=== PATIENT | male | born 1960 | race Caucasian/White ===

== ENCOUNTER 2020-02-19 09:18 | Outpatient (CLI) | payer BC, SELFPAY ==
--- NOTE | ~2020-02-19 | US_ITS ---
EXAMINATION: US carotid duplex BI DATE: 02/19/2020 09:40 INDICATION: Left carotid bruit TECHNIQUE: Grayscale, color Doppler, and pulsed Doppler images of the cervical carotid arteries were obtained. The degree of vessel stenosis is placed in one of the following categories: normal, <50%, 5 0-69%, >=70% but less than near-occlusion, near-occlusion, or total occlusion. Note that percent sten osis relative to normal distal artery lumen diameter is indirectly measured from velocity measurement s as described by Trace, et al. Radiology 2003; [id number]:[id number]. COMPARISON: None. FINDINGS: RIGHT: The right common carotid artery (CCA) peak systolic velocity (PSV) is 110 cm/s. The right internal ca rotid artery (ICA) PSV is 96 cm/s. The right ICA end-diastolic velocity (EDV) is 23 cm/s. The right I CA/CCA PSV ratio is 0.9. Grayscale and color Doppler images yield an estimate of <50% diameter reduct ion from plaque in the ICA. The external carotid artery (ECA) PSV is 175 cm/s. There is antegrade leeroy w in the right vertebral artery. LEFT: The left CCA PSV is 116 cm/s. The left ICA PSV is 92 cm/s. The left ICA EDV is 14 cm/s. The left ICA/ CCA PSV ratio is 0.8. Grayscale and color Doppler images yield an estimate of <50% diameter reduction from plaque in the ICA. The ECA PSV is 113 cm/s. There is antegrade flow in the left vertebral arter y. IMPRESSION: 1. <50% stenosis in the right internal carotid artery. 2. <50% stenosis in the left internal carotid artery. Reviewed, dictated and finalized at location B. CHANGER
== END 2020-02-19 09:19 | disposition home or self-care (01) ==
LOC: CHSIMG 09:19
PROVIDERS: PCP Internal Medicine; Visit Provider Internal Medicine
DX: R09.89 Other specified symptoms and signs involving the circulatory and respiratory systems (principal)
CPT/HCPCS: 93880

== ENCOUNTER 2024-05-24 07:36 | Outpatient (CLI) | payer BC, SELFPAY ==
--- NOTE | ~2024-05-24 | US_ITS ---
EXAMINATION: US carotid duplex BI DATE: 05/24/2024 08:11 INDICATION: Carotid stenosis TECHNIQUE: Grayscale, color Doppler, and pulsed Doppler images of the cervical carotid arteries were obtained. The degree of vessel stenosis is placed in one of the following categories: normal, <50%, 5 0-69%, >=70% but less than near-occlusion, near-occlusion, or total occlusion. Note that percent sten osis relative to normal distal artery lumen diameter is indirectly measured from velocity measurement s as described by Trace, et al. Radiology 2003; [id number]. COMPARISON: 02/19/2020 FINDINGS: RIGHT: The right common carotid artery (CCA) peak systolic velocity (PSV) is 103 cm/s. The right internal ca rotid artery (ICA) PSV is 75 cm/s. The right ICA end-diastolic velocity (EDV) is 23 cm/s. The right I CA/CCA PSV ratio is 0.7. Grayscale and color Doppler images yield an estimate of <50% diameter reduct ion from plaque in the ICA. The external carotid artery (ECA) PSV is 100 cm/s. There is antegrade leeroy w in the right vertebral artery. LEFT: The left CCA PSV is 103 cm/s. The left ICA PSV is 90 cm/s. The left ICA EDV is 24 cm/s. The left ICA/ CCA PSV ratio is 0.9. Grayscale and color Doppler images yield an estimate of <50% diameter reduction from plaque in the ICA. The ECA PSV is 90 cm/s. There is antegrade flow in the left vertebral artery . IMPRESSION: 1. <50% stenosis in the right internal carotid artery. 2. <50% stenosis in the left internal carotid artery. Reviewed, dictated and finalized at location A.
--- NOTE | ~2024-05-24 | CT_ITS ---
CT Scan of the Chest without Contrast: Clinical Indication: Lung cancer screening, nicotine dependence Technique: Contiguous sections were acquired throughout the chest without intravenous contrast. Dose reduction technique was used on this scan by utilizing automated exposure control and iterative recon struction technique. The dose-length product (DLP) was 159.81 mGy-cm. Findings: There is no evidence of any significant mediastinal, hilar or axillary lymphadenopathy. Coronary marnie ry calcifications are present. There is no evidence of pleural or pericardial effusion. Loosely grouped pulmonary nodules are present in the lateral right upper lobe, largest nodule measuri ng 6 mm, appearance suggestive of focal infectious process or small impacted airways. Images through the upper abdomen reveal no abnormalities. Impression: Lung RADS 3: Probably benign. Six-month follow-up CT recommended. Reviewed, dictated and finalized at [facility]. Impression: Lung RADS 3: Probably benign. Six-month follow-up CT recommended.
--- NOTE | ~2024-05-24 | US_ITS ---
EXAMINATION: US aorta DATE: 05/24/2024 08:14 INDICATION: Abdominal aortic aneurysm screening with risk factors of hypertension, obesity, hyperchol esterolemia and prior smoking. TECHNIQUE: Grayscale, color Doppler, and pulsed Doppler images of the aorta and common iliac arteries were obtained. COMPARISON: None. FINDINGS: The proximal aorta measures 2.3 cm. The mid aorta measures 2.0 cm. The distal aorta measures 1.7 cm. The right common iliac artery measures 1.4 cm. The left common iliac artery measures 1.2 cm. IMPRESSION: 1. Normal caliber abdominal aorta Reviewed, dictated and finalized at location A.
== END 2024-05-24 07:37 | disposition home or self-care (01) ==
LOC: CHSIMG 07:41
PROVIDERS: PCP Internal Medicine; Visit Provider Internal Medicine
DX: Z13.6 Encounter for screening for cardiovascular disorders (principal); Z12.2 Encounter for screening for malignant neoplasm of respiratory organs; Z87.891 Personal history of nicotine dependence; I65.23 Occlusion and stenosis of bilateral carotid arteries
CPT/HCPCS: 71271; 76775; 93880

== ENCOUNTER 2024-07-10 01:20 | Day surgery (SDC) | payer BC, SELFPAY ==
[2024-07-03 08:19] VITALS: BMI 27.1
[2024-07-10 07:05] VITALS: BP 135/69; PULSE 55; RESP 20; TEMP 36.1; O2SAT 97; BMI 26.6
[2024-07-10] MEDS: LACTATED RINGERS 1,000 ML 150 ML IV CONT (07:20)
--- NOTE | 2024-07-10 07:47 | PM.IMHP ---
H&P: HPI History of Present Illness Date/Time: 07/10/24 07:47 Chief Complaint: screening for colorectal cancer Narrative: this is a 64-year-old man who presents for colonoscopy. His last colonoscopy was 8-10 years ago. He denies any hematochezia or melena. He denies family history of colon cancer. Review of Systems Review of Systems: All systems reviewed & are unremarkable except as noted in HPI and below Constitutional: Constitutional: Denies chills, Denies fever(s), Denies headache(s) and Denies weight loss Eyes: Eyes: Denies change in vision ENT: Denies dizziness, Denies headache(s), Denies neck mass and Denies throat swelling Cardiovascular: Cardiovascular: Denies chest pain, Denies lightheadedness and Denies dyspnea Respiratory: Respiratory: Denies cough, Denies dyspnea and Denies wheezing Gastrointestinal: Gastrointestinal: Denies abdominal pain, Denies change in bowel habits, Denies nausea and Denies vomiting Genitourinary: Genitourinary: Denies hematuria and Denies dysuria Musculoskeletal: Musculoskeletal: Reports as per HPI Integumentary/Breasts: Skin/Breast: Reports as per HPI Neurologic: Denies dizziness and Denies headache(s) Allergic/Immunologic: Allergic/Immunologic: Denies throat swelling and Denies wheezing [facility] Past Medical History Medical History (Reviewed 10/29/22 @ 13:09 by Megan Menchaca [facility]) Coronary artery disease Hyperlipidemia Family History Family History Father Mesothelioma Mother Lung cancer Sibling Emphysema/COPD Mother Family history of lung cancer Sibling Family history of emphysema Social History Social History (Updated 10/25/23 @ 13:00 by Marina Plaza [facility]) Smoking packs per day: 1 Smoking cigarettes per day: 20.0 Years smoked: 45 Smoking pack-years: 45.00 Smoking status: Current every day smoker Smoking end date: 08/06/16 Alcohol intake: current Drinks per week: 10 Alcohol use details: Beer Substance use: never Substance use type: does not use Other substance usage details: Gummy periodically Do You Feel Safe in your Home?: Yes Lack of Transportation: No Lack of Food: Never True Current Housing: I Have Housing Concerned About Future Housing: No Difficulty Paying Gas/Electric Bills: No Difficulty Paying for Meds: No Currently Unemployed: YES Education: High School Diploma/GED Difficulty w/ Childcare or Family Care: No Living arrangements: with family Spiritual care concerns: No Meds Home Medications and Allergies Home Medications ?Medication ?Instructions ?Recorded ?Confirmed ?Type aspirin 81 mg tablet,delayed 81 mg PO DAILY 03/31/19 07/10/24 History release (Adult Low Dose Aspirin) lisinopril 20 1 tablet PO DAILY 03/31/19 07/10/24 History mg-hydrochlorothiazide 12.5 mg tablet nitroglycerin 0.4 mg sublingual 0.4 mg sublingual Q5M PRN chest 03/31/19 07/03/24 History tablet (Nitrostat) pain omega-3 fatty acids 1,000 mg 2,000 mg PO DAILY 03/31/19 07/10/24 History capsule (Fish Oil Concentrate) rosuvastatin 40 mg tablet (Crestor) 40 mg PO DAILY 03/31/19 07/10/24 History carvedilol 6.25 mg tablet 25 mg PO BID 07/03/24 07/10/24 History escitalopram oxalate 10 mg tablet 10 mg PO DAILY 07/03/24 07/10/24 History Allergies Allergy/AdvReac Type Severity Reaction Status Date / Time No Known Allergies Allergy Verified 07/10/24 07:03 Vital Signs Vital Signs - 24 hr 07/10/24 07:05 Temperature 97 F L Pulse Rate 55 L Respiratory Rate 20 Blood Pressure 135/69 Pulse Oximetry 97 Oxygen Delivery Room Air Exam Const: General: no acute distress and alert Orientation/consciousness: patient oriented x3 HENMT: Head: normocephalic and atraumatic Ears: hearing grossly normal bilaterally Face/Nose/Sinus: Normal nares present Mouth: Yes Normal oral and palatal mucosa present Eyes: Periorbital: periorbital findings normal Sclera: sclerae normal EOM: EOMs intact bilaterally Neck: Neck: normal visual inspection, no lymphadenopathy and trachea midline Chest: Chest palpation & inspection: normal inspection of the chest Resp: Effort & Inspection: normal respiratory effort Auscultation: clear to auscultation bilaterally Cardio: Jugular venous distension: no JVD Rate: regular rate Rhythm: regular rhythm Heart sounds: S1 normal heart sound present and S2 normal heart sound present Peripheral pulses: Peripheral pulses 2+ throughout GI: Inspection: normal to inspection GI Palp: Yes Soft to palpation, No Tenderness to palpation present (GI), No Guarding due to palpation present (GI) and No Rebound tenderness present Percussion: Yes normal to percussion Auscultation: normal bowel sounds : General: Yes no CVA tenderness Back/Spine/Pelvis: Back: no CVA tenderness Neuro: General: patient oriented x3, no focal motor deficits and CN's II-XI intact bilaterally Cognition (Neuro): normal cognition Speech: normal speech Motor exam (neuro): 5/5 motor strength present throughout Extrem: General: capillary refill normal and no clubbing, cyanosis or edema Assessment and Plan Assessment and plan (1) Screening for colorectal cancer: Code(s): Z12.11 - Encounter for screening for malignant neoplasm of colon; Z12.12 - Encounter for screening for malignant neoplasm of rectum Status: Acute Assessment and Plan: I have recommended colonoscopy. I have discussed the procedure, risks, benefits, and alternatives. Questions were answered. Patient is agreeable to proceed.
--- NOTE | 2024-07-10 07:53 | P.PNAN_ITS ---
Anes - Initial Pre Proc Eval Procedure: Operation Date: 07/10/24 08:00 Proposed Procedures p Screening Colonoscopy - Gerber Snell DO Date/Time: 07/10/24 07:53 Surgeon: Gerber Snell DO Pre Op Diagnosis: Screening for malignant neoplasm of colon Patient Data Age: 64 Gender: M Height: 1.83 m Weight: 89.3 kg Last Vital Signs Temp 97 F L 07/10/24 07:05 Pulse 55 L 07/10/24 07:05 Resp 20 07/10/24 07:05 BP 135/69 07/10/24 07:05 Pulse Ox 97 07/10/24 07:05 O2 Del Method Room Air 07/10/24 07:05 Allergies Allergy/AdvReac Type Severity Reaction Status Date / Time No Known Allergies Allergy Verified 07/10/24 07:03 Home Medications ?Medication ?Instructions ?Recorded ?Confirmed ?Type aspirin 81 mg tablet,delayed 81 mg PO DAILY 03/31/19 07/10/24 History release (Adult Low Dose Aspirin) lisinopril 20 1 tablet PO DAILY 03/31/19 07/10/24 History mg-hydrochlorothiazide 12.5 mg tablet nitroglycerin 0.4 mg sublingual 0.4 mg sublingual Q5M PRN chest 03/31/19 07/03/24 History tablet (Nitrostat) pain omega-3 fatty acids 1,000 mg 2,000 mg PO DAILY 03/31/19 07/10/24 History capsule (Fish Oil Concentrate) rosuvastatin 40 mg tablet (Crestor) 40 mg PO DAILY 03/31/19 07/10/24 History carvedilol 6.25 mg tablet 25 mg PO BID 07/03/24 07/10/24 History escitalopram oxalate 10 mg tablet 10 mg PO DAILY 07/03/24 07/10/24 History Patient hx anesthesia problems: none Family hx anesthesia problems: none Results Review: All pre-operative results and documents have been reviewed as part of the pre- operative evaluation. [facility] Past Medical History Medical History Hyperlipidemia Coronary artery disease Family History Family History Father Mesothelioma Mother Lung cancer Sibling Emphysema/COPD Mother Family history of lung cancer Sibling Family history of emphysema Social History Social History Smoking packs per day: 1 Smoking cigarettes per day: 20.0 Years smoked: 45 Smoking pack-years: 45.00 Smoking status: Current every day smoker Smoking end date: 08/06/16 Alcohol intake: current Drinks per week: 10 Alcohol use details: Beer Substance use: never Substance use type: does not use Other substance usage details: Gummy periodically Do You Feel Safe in your Home?: Yes Lack of Transportation: No Lack of Food: Never True Current Housing: I Have Housing Concerned About Future Housing: No Difficulty Paying Gas/Electric Bills: No Difficulty Paying for Meds: No Currently Unemployed: YES Education: High School Diploma/GED Difficulty w/ Childcare or Family Care: No Living arrangements: with family Spiritual care concerns: No Anes - Eval Final PreProcedure Day of Procedure 07/10/24 07:53 Patient weight: overweight Lungs: normal air movement Airway: Mallampati scale class II Neurological: alert and oriented Last oral intake: >/= 8 hours ASA classification: III Emergent: no Anesthetic plan: proceed Anesthesia type and monitoring: general GIVS and standard monitoring Results Review: All pre-operative results and documents have been reviewed as part of the pre- operative evaluation. HTN, hyperlipidemia, s/p PTCA 2014, pt sees cardiology yearly, can walk 1-2 fos, 1 mile, no cp or sob. Informed Consent: The patient's anesthetic plan and its attendant risks and benefits were discussed with the patient/family/POA. Questions were solicited and answers provided to the satisfaction of the patient/family/POA.
[2024-07-10 08:17] VITALS: BP 100/49; PULSE 57; RESP 22; O2SAT 97
[2024-07-10 08:27] VITALS: BP 129/68; PULSE 56; RESP 18; O2SAT 100
[2024-07-10 08:37] VITALS: BP 135/70; PULSE 50; RESP 24; O2SAT 100
== END 2024-07-10 08:49 | disposition home or self-care (01) ==
PROVIDERS: PCP Internal Medicine; Visit Provider Surgery
PROC: 0DJD8ZZ Inspection of Lower Intestinal Tract, Via Natural or Artificial Opening Endoscopic (ICD-10-PCS; CPT 45378; principal; 2024-07-10 08:00)
DX: Z12.11 Encounter for screening for malignant neoplasm of colon (principal); D12.0 Benign neoplasm of cecum; D12.2 Benign neoplasm of ascending colon; K57.30 Diverticulosis of large intestine without perforation or abscess without bleeding; Z87.891 Personal history of nicotine dependence
CPT/HCPCS: 45380; 88305; J2704; J7120

== ENCOUNTER 2024-07-10 14:21 | Outpatient (CLI) | payer BC, SELFPAY ==
--- NOTE | ~2024-07-10 | CT_ITS ---
CT Scan of the Chest without Contrast: Clinical Indication: Pulmonary nodule Technique: Contiguous sections were acquired throughout the chest without intravenous contrast. Dose reduction technique was used on this scan by utilizing automated exposure control and iterative recon struction technique. The dose-length product (DLP) was 325.93 mGy-cm. COMPARISON: 05/24/2024 Findings: There is no evidence of any significant mediastinal, hilar or axillary lymphadenopathy. Coronary marnie ry calcifications are present. There is no evidence of pleural or pericardial effusion. Stable group subcentimeter nodules peripherally in the right upper lobe. Stable additional nodule in the inferior right upper lobe (axial image 59). A few focal small groups tree in bud opacities in the right middle and right lower lobes are present, unchanged. Left lung clear. Images through the upper abdomen reveal no abnormalities. Impression: Focal areas of grouped/tree-in-bud nodules in the right lung, as above, unchanged, compatible with ch ronic small airways infection versus postinflammatory change or small impacted airways. Reviewed, dictated and finalized at location . Impression: Focal areas of grouped/tree-in-bud nodules in the right lung, as above, unchang ed, compatible with chronic small airways infection versus postinflammatory all nge or small impacted airways.
== END 2024-07-10 14:22 | disposition home or self-care (01) ==
LOC: CHSIMG 14:23
PROVIDERS: PCP Internal Medicine; Visit Provider Internal Medicine
DX: R91.1 Solitary pulmonary nodule (principal); R91.8 Other nonspecific abnormal finding of lung field
CPT/HCPCS: 71250

== ENCOUNTER 2024-08-16 08:55 | Outpatient (CLI) | payer BC, SELFPAY | END 2024-08-16 08:56 | disposition home or self-care (01) | PROVIDERS: PCP Internal Medicine; Visit Provider Internal Medicine | DX: J44.9 Chronic obstructive pulmonary disease, unspecified (principal); R84.2 Abnormal level of other drugs, medicaments and biological substances in specimens from respiratory organs and thorax | CPT/HCPCS: 94060; 94726; 94729 ==

== ENCOUNTER 2025-01-11 13:01 | Outpatient (CLI) | payer BC, SELFPAY ==
--- NOTE | ~2025-01-11 | CT_ITS ---
EXAM/PROCEDURE: CT diagnostic chest wo con HISTORY: PULMONARY NODULE COMPARISON: July 10, 2024 TECHNIQUE: Noncontrast chest CT FINDINGS: Right upper lobe nodular changes are similar in appearance compared to the previous exams. No gross interval change from the previous studies. IMPRESSION: Right upper lobe nodule similar to the previous exams extending back to May 2024. RECOMMENDATION: Correlation with follow-up chest CT in 6 months with suggestive dated next exam on or about July 11, 2025. These nodules should be followed for a total duration of 24 months. Reviewed, dictated and finalized at location A. [employer] [employer] IMPRESSION: Right upper lobe nodule similar to the previous exams extending back to May 07. RECOMMENDATION: Correlation with follow-up chest CT in 6 months with suggestive dated next exam on or about July 11, 2025. These nodules should be followed for a total duration of 24 months.
== END 2025-01-11 13:02 | disposition home or self-care (01) ==
LOC: CHSIMG 13:04
PROVIDERS: PCP Internal Medicine; Visit Provider Internal Medicine
DX: R91.1 Solitary pulmonary nodule (principal)
CPT/HCPCS: 71250